=== PATIENT | male | born 1945 | race Caucasian/White ===

== ENCOUNTER → 2020-06-30 | Outpatient (CLI) | payer OTHER ==
[~2020-06-30] MED LIST: AMLODIPINE BESY10 MG; ASPIRIN81 MG; COQ-1030 MG; COVID-19 VACC, MRNA(MODERNA)/PF 100 MCG/0.5 ML VIAL IM ONE; FENOFIBRATE145 M1; FIBER TABS625 MG; GLIPIZIDE ER10 MG; LEVAQUIN500 MG PO; LOPRESSOR25 MG; LOSARTAN POTASS25 MG; MELOXICAM7.5 MG; METFORMIN HCL500 MG; MULTI-VITAMIN1 EACH; NIACIN500 M2 PO; PRAVASTATIN SOD80 MG; STOOL SOFTENER100 MG; VITAMIN C500 M6
== END ==
LOC: VACCPMC 16:00
DX: Z23 Encounter for immunization (principal); Z20.822 Contact with and (suspected) exposure to COVID-19

== ENCOUNTER → 2020-07-30 | Outpatient (CLI) | payer OTHER | END | DRG 951 | LOC: VACCPMC 09:24 | DX: Z23 Encounter for immunization (principal); Z20.822 Contact with and (suspected) exposure to COVID-19 | CPT/HCPCS: 0012A; 91301 ==

== ENCOUNTER 2020-08-30 12:40 | Inpatient (IN) | payer MEDICARE, OTHER ==
[~2020-08-30] VITALS: Ht 180.3 cm; Wt 108.9 kg
[~2020-08-30 12:40] MED LIST changes: -AMLODIPINE BESY10 MG; +AMLODIPINE BESY10 MG PO; -COQ-1030 MG; +COQ-1030 MG PO; -COVID-19 VACC, MRNA(MODERNA)/PF 100 MCG/0.5 ML VIAL IM ONE; -FENOFIBRATE145 M1; +FENOFIBRATE145 M1 PO; -GLIPIZIDE ER10 MG; +GLIPIZIDE ER10 MG PO; -LOSARTAN POTASS25 MG; +LOSARTAN POTASS25 MG PO; -MELOXICAM7.5 MG; +MELOXICAM7.5 MG PO; -METFORMIN HCL500 MG; +METFORMIN HCL500 MG PO; -STOOL SOFTENER100 MG; +STOOL SOFTENER100 MG PO
[2020-08-30 13:12] LABS: BASOPHILS # (AUTO) 0.1 (0.0-0.1); BASOPHILS % 0.7 % (0.0-1.0); EOSINOPHILS # (AUTO) 0.2 (0.0-0.4); EOSINOPHILS % 3.4 % (0.0-6.0); HEMATOCRIT 52.5 % (38.2-49.6); HEMOGLOBIN 17.3 g/dL (14.0-18.0); LYMPHOCYTES # (AUTO) 2.2 (1.0-3.2); LYMPHOCYTES % 32.4 % (18.0-39.1); MEAN CORPUSCULAR HEMOGLOBIN 32.2 pg (28-32); MEAN CORPUSCULAR VOLUME 97.8 fL (81-99); MONOCYTES # (AUTO) 0.4 (0.2-0.8); MONOCYTES % 5.4 % (4.4-11.3); NEUTROPHILS # (AUTO) 3.9 (2.1-6.9); NEUTROPHILS % 57.4 % (38.7-80.0); PLATELET COUNT 130 x10e3/uL (140-360); RED BLOOD COUNT 5.37 x10e6/uL (4.3-5.7); RED CELL DISTRIBUTION WIDTH 13.4 % (11.7-14.4)
[2020-08-30 13:45] LABS: ALANINE AMINOTRANSFERASE 37 IU/L (0-55); ALBUMIN 3.9 g/dL (3.5-5.0); ALKALINE PHOSPHATASE 41 IU/L (40-150); ANION GAP 17.6 mmol/L (8-16); BLOOD UREA NITROGEN 20 mg/dL (7-26); BUN/CREATININE RATIO 21 (6-25); CALCIUM 9.4 mg/dL (8.4-10.2); CARBON DIOXIDE 22 mmol/L (22-29); CHLORIDE 108 mmol/L (98-107); CREATINE KINASE 143 IU/L (30-200); CREATININE, SERUM 0.97 mg/dL (0.72-1.25); EST GLOMERULAR FILTRATION RATE > 60 ML/MIN (60-); GLUCOSE 177 mg/dL (74-118); POTASSIUM 4.6 mmol/L (3.5-5.1); SODIUM 143 mmol/L (136-145)
[2020-08-30] MEDS ORDERED: NEURONTIN100 MG PO (14:57)
[2020-08-30] MEDS ORDERED: PRAVACHOL40 MG PO (14:57)
[2020-08-30] MEDS ORDERED: METOPROLOL TART25 MG PO (14:57)
[2020-08-30] MEDS ORDERED: ASPIRIN81 MG PO (14:57)
[2020-08-30] MEDS ORDERED: FISH OIL 1,2001 EACH PO (14:57)
[2020-08-30] MEDS ORDERED: JARDIANCE25 MG PO (14:57)
[2020-08-30] MEDS ORDERED: BENAZEPRIL HCL10 MG PO (14:59)
[2020-08-30] MEDS ORDERED: DIPHENHYDRAMINE HCL 25 MG CAP PO PRN (19:00)
[2020-08-30] MEDS: SODIUM CHLORIDE 0.9% 1000ML 1,000 ML IV SCH (19:30)
[2020-08-30] MEDS ORDERED: ENOXAPARIN SODIUM INJ 100 MG/ML SYR SC ONE (19:35)
[2020-08-30] MEDS ORDERED: PREDNISONE 20 MG TAB PO SCH (19:45)
[2020-08-30] MEDS ORDERED: METOPROLOL TARTRATE 25 MG TAB PO SCH (19:45)
[2020-08-30 20:20] VITALS: BP 165/89
[2020-08-30 20:34] LABS: CREATINE KINASE MB 1.4 ng/mL (0-5.0)
[2020-08-30 20:35] VITALS: BP 165/89
[2020-08-30 20:36] LABS: CHOL/HDL RATIO 5.7 (3.9-4.7)
[2020-08-30 21:30] VITALS: BP 165/89
[2020-08-30] MEDS: FAMOTIDINE 20 MG TAB PO SCH (21:37)
[2020-08-30] MEDS: AMLODIPINE BESYLATE 5 MG TAB PO SCH (21:39)
[2020-08-30] MEDS: PREDNISONE 20 MG TAB PO SCH (21:40)
[2020-08-30] MEDS: ATORVASTATIN 40 MG TAB PO SCH (21:41)
[2020-08-30] MEDS ORDERED: FIBER TAB PO (22:10)
[2020-08-30] MEDS ORDERED: GARLIC1 EAC1 PO (22:10)
[2020-08-30] MEDS ORDERED: VITAMIN B-1 PO (22:10)
[2020-08-31] VITALS (27 sets, daily range): BP systolic 112–177; BP diastolic 60–106
[2020-08-31] MEDS: SODIUM CHLORIDE 0.9% 1000ML 1,000 ML IV SCH ×3 (01:29→17:09)
[2020-08-31 06:36] LABS: ANION GAP 14.5 mmol/L (8-16); BLOOD UREA NITROGEN 20 mg/dL (7-26); BUN/CREATININE RATIO 22 (6-25); CALCIUM 8.8 mg/dL (8.4-10.2); CARBON DIOXIDE 19 mmol/L (22-29); CHLORIDE 111 mmol/L (98-107); CREATININE, SERUM 0.92 mg/dL (0.72-1.25); EST GLOMERULAR FILTRATION RATE > 60 ML/MIN (60-); GLUCOSE 226 mg/dL (74-118); POTASSIUM 4.5 mmol/L (3.5-5.1); SODIUM 140 mmol/L (136-145)
[2020-08-31 07:25] LABS: CHOL/HDL RATIO 5.5 (3.9-4.7)
[2020-08-31] MEDS: FAMOTIDINE 20 MG TAB PO SCH ×2 (07:30→16:22)
[2020-08-31 08:07] LABS: CREATINE KINASE MB 1.9 ng/mL (0-5.0)
[2020-08-31] MEDS: ASPIRIN 81 MG CHEW TAB PO SCH (09:00)
[2020-08-31] MEDS ORDERED: LOSARTAN POTASSIUM 25 MG TAB PO SCH (09:00)
[2020-08-31] MEDS ORDERED: MIDAZOLAM HCL 2 MG/2 ML VIAL ONE (09:17)
[2020-08-31] MEDS ORDERED: LIDOCAINE HCL 2% LOCAL 20 ML VIAL ONE (09:17)
[2020-08-31] MEDS ORDERED: FENTANYL CITRATE/PF 100MCG/2 ML INJ ONE (09:17)
[2020-08-31] MEDS ORDERED: IOPAMIDOL 370 MG/ML 200 ML INFUS..BTL INJ ONE (09:18)
[2020-08-31] MEDS ORDERED: SODIUM CHLORIDE 0.9% 1000ML 1,000 ML ONE (09:18)
[2020-08-31] MEDS ORDERED: HEPARIN SOD/SOD CHLORIDE 2,000 ML ONE (09:18)
[2020-08-31] MEDS ORDERED: METHYLPREDNISOLONE SOD SUCC 125 MG/2ML VIAL ONE (09:22)
[2020-08-31] MEDS ORDERED: CLOPIDOGREL BISULFATE 75 MG TAB ONE (10:29)
[2020-08-31] MEDS ORDERED: ASPIRIN 325 MG TAB ONE (10:29)
[2020-08-31] MEDS ORDERED: ADENOSINE 6MG/2ML 1 ML ONE (10:32)
[2020-08-31] MEDS ORDERED: SODIUM CHLORIDE 0.9% 50ML 50 ML ONE (10:32)
[2020-08-31] MEDS ORDERED: EPTIFIBATIDE 20 ML ONE (10:36)
[2020-08-31] MEDS ORDERED: NITROGLYCERIN/D5W 200 MCG/ML 250 ML ONE (10:36)
[2020-08-31] MEDS ORDERED: EPTIFIBATIDE 75mg 100ML 100 ML ONE (10:36)
[2020-08-31] MEDS ORDERED: MORPHINE SULFATE INJ 4 MG/ML INJ 1ML IV PRN ×2 (11:00→15:00)
[2020-08-31] MEDS: METOPROLOL TARTRATE 25 MG TAB PO SCH ×2 (11:00→13:20)
[2020-08-31] MEDS: NITROGLYCERIN/D5W 200 MCG/ML 250 ML IV SCH (11:00)
[2020-08-31] MEDS ORDERED: MORPHINE SULFATE INJ 4 MG/ML INJ 1ML ONE (11:04)
[2020-08-31] MEDS: GABAPENTIN 100 MG CAP PO SCH ×2 (12:21→16:22)
[2020-08-31] MEDS: FENOFIBRATE 145 MG TAB PO SCH (12:21)
[2020-08-31] MEDS: AMLODIPINE BESYLATE 5 MG TAB PO SCH ×2 (12:21→12:59)
[2020-08-31] MEDS: LOSARTAN POTASSIUM 25 MG TAB PO SCH (12:21)
[2020-08-31] MEDS: EPTIFIBATIDE 75mg 100ML 100 ML IV SCH ×2 (15:14→21:45)
[2020-08-31] MEDS: PREDNISONE 20 MG TAB PO SCH (16:22)
[2020-08-31] MEDS: METOPROLOL TARTRATE 50 MG TAB PO SCH (17:46)
[2020-08-31] MEDS ORDERED: DEXTROSE 50% SYRINGE 50 ML IV PRN (20:45)
[2020-08-31] MEDS: ATORVASTATIN 40 MG TAB PO SCH (20:55)
[2020-08-31] MEDS: INSULIN REGULAR, HUMAN 100 UNIT/1 ML 3ML VIAL SQ SCH (20:55)
[2020-08-31] MEDS ORDERED: INSULIN REGULAR, HUMAN 100 UNIT/1 ML 3ML VIAL ONE (20:57)
[2020-09-01] VITALS (26 sets, daily range): BP systolic 64–185; BP diastolic 52–96
[2020-09-01] MEDS: SODIUM CHLORIDE 0.9% 1000ML 1,000 ML IV SCH ×3 (03:00→23:46)
[2020-09-01 04:46] LABS: BASOPHILS % 0.2 % (0.0-1.0); HEMATOCRIT 44.8 % (38.2-49.6); HEMOGLOBIN 14.4 g/dL (14.0-18.0); LYMPHOCYTES # (AUTO) 1.3 (1.0-3.2); LYMPHOCYTES % 10.9 % (18.0-39.1); MEAN CORPUSCULAR HEMOGLOBIN 32.1 pg (28-32); MEAN CORPUSCULAR HGB CONC 32.1 g/dL (31-35); MEAN CORPUSCULAR VOLUME 99.8 fL (81-99); MONOCYTES # (AUTO) 0.4 (0.2-0.8); MONOCYTES % 3.4 % (4.4-11.3); NEUTROPHILS # (AUTO) 10.3 (2.1-6.9); NEUTROPHILS % 84.8 % (38.7-80.0); PLATELET COUNT 236 x10e3/uL (140-360); RED BLOOD COUNT 4.49 x10e6/uL (4.3-5.7); RED CELL DISTRIBUTION WIDTH 13.4 % (11.7-14.4)
[2020-09-01 05:15] LABS: ALANINE AMINOTRANSFERASE 27 IU/L (0-55); ALBUMIN 3.2 g/dL (3.5-5.0); ALBUMIN/GLOBULIN RATIO 1.1 (0.8-2.0); ALKALINE PHOSPHATASE 35 IU/L (40-150); ANION GAP 13.2 mmol/L (8-16); BLOOD UREA NITROGEN 29 mg/dL (7-26); BUN/CREATININE RATIO 26 (6-25); CARBON DIOXIDE 20 mmol/L (22-29); CHLORIDE 110 mmol/L (98-107); CREATININE, SERUM 1.13 mg/dL (0.72-1.25); EST GLOMERULAR FILTRATION RATE > 60 ML/MIN (60-); GLUCOSE 215 mg/dL (74-118); POTASSIUM 4.2 mmol/L (3.5-5.1); SODIUM 139 mmol/L (136-145)
[2020-09-01] MEDS: METOPROLOL TARTRATE 50 MG TAB PO SCH ×2 (06:26→16:38)
[2020-09-01] MEDS: ASPIRIN 81 MG CHEW TAB PO SCH (08:00)
[2020-09-01] MEDS: FAMOTIDINE 20 MG TAB PO SCH ×2 (08:00→16:36)
[2020-09-01] MEDS: AMLODIPINE BESYLATE 5 MG TAB PO SCH (08:01)
[2020-09-01] MEDS: CLOPIDOGREL BISULFATE 75 MG TAB PO SCH (08:01)
[2020-09-01] MEDS: GABAPENTIN 100 MG CAP PO SCH ×2 (08:01→16:36)
[2020-09-01] MEDS: FENOFIBRATE 145 MG TAB PO SCH (08:01)
[2020-09-01] MEDS: LOSARTAN POTASSIUM 25 MG TAB PO SCH ×2 (08:01→21:08)
[2020-09-01] MEDS: INSULIN REGULAR, HUMAN 100 UNIT/1 ML 3ML VIAL SQ SCH ×4 (08:02→21:17)
[2020-09-01] MEDS ORDERED: AMLODIPINE BESYLATE 5 MG TAB PO ONE (10:00)
[2020-09-01] MEDS: NITROGLYCERIN/D5W 200 MCG/ML 250 ML IV SCH (14:11)
[2020-09-01] MEDS: PREDNISONE 20 MG TAB PO SCH (16:37)
[2020-09-01] MEDS: ATORVASTATIN 40 MG TAB PO SCH (21:08)
[2020-09-02] VITALS (24 sets, daily range): BP systolic 98–166; BP diastolic 53–95
[2020-09-02] MEDS: METOPROLOL TARTRATE 50 MG TAB PO SCH ×2 (06:00→16:44)
[2020-09-02] MEDS: GABAPENTIN 100 MG CAP PO SCH ×2 (07:59→16:44)
[2020-09-02] MEDS: FAMOTIDINE 20 MG TAB PO SCH ×2 (07:59→16:43)
[2020-09-02] MEDS: ASPIRIN 81 MG CHEW TAB PO SCH (07:59)
[2020-09-02] MEDS: LOSARTAN POTASSIUM 25 MG TAB PO SCH ×2 (07:59→21:11)
[2020-09-02] MEDS: FENOFIBRATE 145 MG TAB PO SCH (08:00)
[2020-09-02] MEDS: CLOPIDOGREL BISULFATE 75 MG TAB PO SCH (08:00)
[2020-09-02] MEDS: AMLODIPINE BESYLATE 10 MG TAB PO SCH (08:03)
[2020-09-02] MEDS: INSULIN REGULAR, HUMAN 100 UNIT/1 ML 3ML VIAL SQ SCH ×4 (08:05→21:11)
[2020-09-02] MEDS: ATORVASTATIN 40 MG TAB PO SCH (21:11)
[2020-09-03 00:01] VITALS: BP 115/59
[2020-09-03 04:00] VITALS: BP 137/88
[2020-09-03] MEDS: METOPROLOL TARTRATE 50 MG TAB PO SCH ×2 (05:26→16:53)
[2020-09-03 06:11] LABS: BASOPHILS % 0.2 % (0.0-1.0); HEMATOCRIT 48.1 % (38.2-49.6); HEMOGLOBIN 15.6 g/dL (14.0-18.0); LYMPHOCYTES # (AUTO) 1.5 (1.0-3.2); LYMPHOCYTES % 16.9 % (18.0-39.1); MEAN CORPUSCULAR HEMOGLOBIN 32.7 pg (28-32); MEAN CORPUSCULAR HGB CONC 32.4 g/dL (31-35); MEAN CORPUSCULAR VOLUME 100.8 fL (81-99); MONOCYTES # (AUTO) 0.6 (0.2-0.8); MONOCYTES % 6.3 % (4.4-11.3); NEUTROPHILS # (AUTO) 6.6 (2.1-6.9); NEUTROPHILS % 75.9 % (38.7-80.0); PLATELET COUNT 191 x10e3/uL (140-360); RED BLOOD COUNT 4.77 x10e6/uL (4.3-5.7); RED CELL DISTRIBUTION WIDTH 13.5 % (11.7-14.4)
[2020-09-03 06:36] LABS: ANION GAP 13.1 mmol/L (8-16); BLOOD UREA NITROGEN 14 mg/dL (7-26); BUN/CREATININE RATIO 18 (6-25); CALCIUM 8.5 mg/dL (8.4-10.2); CARBON DIOXIDE 25 mmol/L (22-29); CHLORIDE 110 mmol/L (98-107); EST GLOMERULAR FILTRATION RATE > 60 ML/MIN (60-); GLUCOSE 153 mg/dL (74-118); POTASSIUM 4.1 mmol/L (3.5-5.1); SODIUM 144 mmol/L (136-145)
[2020-09-03 07:48] VITALS: BP 135/79
[2020-09-03] MEDS: INSULIN REGULAR, HUMAN 100 UNIT/1 ML 3ML VIAL SQ SCH ×3 (08:00→16:27)
[2020-09-03 08:12] VITALS: BP 135/79
[2020-09-03] MEDS: FAMOTIDINE 20 MG TAB PO SCH ×2 (08:20→16:52)
[2020-09-03] MEDS: GABAPENTIN 100 MG CAP PO SCH ×2 (08:20→16:52)
[2020-09-03] MEDS: ASPIRIN 81 MG CHEW TAB PO SCH (08:20)
[2020-09-03] MEDS: AMLODIPINE BESYLATE 10 MG TAB PO SCH (08:22)
[2020-09-03] MEDS: CLOPIDOGREL BISULFATE 75 MG TAB PO SCH (08:22)
[2020-09-03] MEDS: FENOFIBRATE 145 MG TAB PO SCH (08:22)
[2020-09-03] MEDS: LOSARTAN POTASSIUM 25 MG TAB PO SCH (08:23)
[2020-09-03 11:55] VITALS: BP 134/80
[2020-09-03 15:58] VITALS: BP 150/79
== END 2020-09-03 18:25 | disposition home or self-care (01) | DRG 247 ==
LOC: ER 13:07 → ERHOLD 13:28 → MED/SURG 18:30 → ICU 08-31 10:30 → OBSVTOIN 08-31 13:36 → MED/SURG3 09-02 22:13
PROVIDERS: ADMIT Family Medicine; ATTEND Family Medicine
PROC: 027035Z Dilation of Coronary Artery, One Artery with Two Drug-eluting Intraluminal Devices, Percutaneous Approach (ICD-10-PCS; principal; 2020-08-31)
PROC: 4A023N7 Measurement of Cardiac Sampling and Pressure, Left Heart, Percutaneous Approach (ICD-10-PCS; 2020-08-31)
PROC: B2111ZZ Fluoroscopy of Multiple Coronary Arteries using Low Osmolar Contrast (ICD-10-PCS; 2020-08-31)
PROC: B2151ZZ Fluoroscopy of Left Heart using Low Osmolar Contrast (ICD-10-PCS; 2020-08-31)
DX: I21.4 Non-ST elevation (NSTEMI) myocardial infarction (principal); I25.110 Atherosclerotic heart disease of native coronary artery with unstable angina pectoris; I10 Essential (primary) hypertension; I25.2 Old myocardial infarction; E11.8 Type 2 diabetes mellitus with unspecified complications; E78.5 Hyperlipidemia, unspecified; Z95.5 Presence of coronary angioplasty implant and graft; Z88.8 Allergy status to other drugs, medicaments and biological substances; Z20.822 Contact with and (suspected) exposure to COVID-19; Z83.3 Family history of diabetes mellitus; Z82.49 Family history of ischemic heart disease and other diseases of the circulatory system; E66.01 Morbid (severe) obesity due to excess calories; J44.9 Chronic obstructive pulmonary disease, unspecified; Z68.33 Body mass index [BMI] 33.0-33.9, adult
CPT/HCPCS: 36415; 71045; 80048; 80053; 80061; 82550; 82553; 82948; 83036; 83880; 84443; 84484; 85025; 92928; 93005; 93306; 93458; 96372; 97139; 99152; 99153; 99251; 99284; C1725; C1874; C1887; G0378; J0153; J1327; J1650; J1817; J2001; J2250; J2270; J2930; J3010; J7030; J7512; Q9967; U0002

== ENCOUNTER 2021-12-15 09:00 | Emergency (ER) | payer MEDICARE, OTHER ==
[~2021-12-15] VITALS: Ht 180.3 cm; Wt 108.9 kg
[~2021-12-15 09:00] MED LIST changes: +ASPIRIN81 MG PO; +BENAZEPRIL HCL10 MG PO; +FIBER TAB PO; +FISH OIL 1,2001 EACH PO; +GARLIC1 EAC1 PO; +JARDIANCE25 MG PO; +METOPROLOL TART25 MG PO; +NEURONTIN100 MG PO; +PRAVACHOL40 MG PO; +VITAMIN B-1 PO
[2021-12-15] MEDS ORDERED: MUCINEX DM ER1 EACH PO (10:45)
== END 2021-12-15 11:01 | disposition home or self-care (01) ==
LOC: ER 09:22
DX: U07.1 COVID-19 (principal); R05.9 Cough, unspecified; I10 Essential (primary) hypertension; E11.9 Type 2 diabetes mellitus without complications; E78.5 Hyperlipidemia, unspecified; I25.10 Atherosclerotic heart disease of native coronary artery without angina pectoris; I25.2 Old myocardial infarction; Z95.5 Presence of coronary angioplasty implant and graft
CPT/HCPCS: 99283; U0002

== ENCOUNTER 2023-07-07 12:40 | Emergency (ER) | payer OTHER ==
[~2023-07-07] VITALS: Ht 180.3 cm; Wt 108.9 kg
[~2023-07-07 12:40] MED LIST changes: +MUCINEX DM ER1 EACH PO
[2023-07-07] MEDS ORDERED: KETOROLAC TROMETHAMINE 30 MG/ML VIAL IV STA (12:44)
[2023-07-07] MEDS ORDERED: SODIUM CHLORIDE 0.9% 1000ML 1,000 ML IV ONE (12:45)
[2023-07-07] MEDS ORDERED: DIPHENHYDRAMINE HCL 25 MG CAP PO ONE (13:00)
[2023-07-07 13:08] LABS: BASOPHILS % 0.6 % (0.0-1.0); EOSINOPHILS # (AUTO) 0.3 (0.0-0.4); EOSINOPHILS % 3.9 % (0.0-6.0); HEMATOCRIT 48.9 % (38.2-49.6); LYMPHOCYTES # (AUTO) 1.8 (1.0-3.2); LYMPHOCYTES % 27.4 % (18.0-39.1); MEAN CORPUSCULAR HEMOGLOBIN 32.7 pg (28-32); MEAN CORPUSCULAR HGB CONC 32.7 g/dL (31-35); MEAN CORPUSCULAR VOLUME 99.8 fL (81-99); MONOCYTES # (AUTO) 0.4 (0.2-0.8); MONOCYTES % 5.4 % (4.4-11.3); NEUTROPHILS # (AUTO) 4.2 (2.1-6.9); NEUTROPHILS % 62.3 % (38.7-80.0); PLATELET COUNT 224 x10e3/uL (140-360); RED CELL DISTRIBUTION WIDTH 12.6 % (11.7-14.4); WHITE BLOOD COUNT 6.67 x10e3/uL (4.8-10.8)
[2023-07-07 13:30] LABS: ALBUMIN 3.9 g/dL (3.5-5.0); ANION GAP 15.7 mmol/L (8-16); BILIRUBIN,TOTAL 0.5 mg/dL (0.2-1.2); CALCIUM 8.8 mg/dL (8.4-10.2); CREATININE, SERUM 1.11 mg/dL (0.72-1.25); POTASSIUM 4.7 mmol/L (3.5-5.1); TOTAL PROTEIN 7.7 g/dL (6.5-8.1)
[2023-07-07 13:48] LABS: CLARITY,URINE CLEAR (CLEAR); COLOR,URINE YELLOW (YELLOW); GLUCOSE, URINE NEGATIVE (NEGATIVE); KETONES,URINE NEGATIVE (NEGATIVE); LEUKOCYTE ESTERASE ,URINE NEGATIVE (NEGATIVE); NITRITE,URINE NEGATIVE (NEGATIVE); PH,URINE 5 (5 - 7); PROTEIN,URINE DIPSTICK NEGATIVE (NEGATIVE)
[2023-07-07 13:49] LABS: BILIRUBIN,URINE SMALL (NEGATIVE)
[2023-07-07 13:50] LABS: URINE UROBILINOGEN 0.2 mg/dL (0.2 - 1)
[2023-07-07] MEDS ORDERED: SODIUM CHLORIDE 0.9% 100 ML ONE (13:55)
[2023-07-07] MEDS ORDERED: IOPAMIDOL 370 MG/ML 100 ML INFUS..BTL INJ ONE (13:55)
[2023-07-07 13:58] LABS: RBC,URINE 0-5 /HPF (0-5); WBC,URINE (MAN) 0-5 /HPF (0-5)
[2023-07-07 14:00] LABS: BACTERIA,URINE FEW /HPF; HYALINE CASTS 0-1 (0-1); TRANSITIONAL EPI CELLS,URINE FEW
[2023-07-07 14:02] LABS: MUCUS,URINE FEW (RARE)
[2023-07-07 16:45] VITALS: BP 151/91; PULSE 57; RESP 16; TEMP 98.2; O2SAT 97
== END 2023-07-07 16:43 | disposition home or self-care (01) ==
LOC: ER 13:09
DX: M54.50 Low back pain, unspecified (principal); I71.40 Abdominal aortic aneurysm, without rupture, unspecified; M48.061 Spinal stenosis, lumbar region without neurogenic claudication; E11.65 Type 2 diabetes mellitus with hyperglycemia; I10 Essential (primary) hypertension; E78.5 Hyperlipidemia, unspecified; I25.10 Atherosclerotic heart disease of native coronary artery without angina pectoris; I25.2 Old myocardial infarction; Z95.5 Presence of coronary angioplasty implant and graft
CPT/HCPCS: 36415; 72131; 74174; 80053; 81001; 83690; 85025; 99284; J1885; J7030; J7050; Q9967